=== PATIENT | male | born 1985 | race Caucasian/White ===

== ENCOUNTER 2024-10-17 18:19 | Emergency (ER) | payer MEDICAID ==
[~2024-10-17] VITALS: Ht 167.6 cm; Wt 54.0 kg
[2024-10-17 18:28] VITALS: TEMP 36.9; O2SAT 99
[2024-10-17] MEDS: CYCLOBENZAPRINE 10MG TABLET PO ONE (19:46)
[2024-10-17] MEDS: LIDOCAINE 5% PATCH TOP SCH (19:46)
[2024-10-17 19:52] VITALS: BP 124/79; PULSE 80; RESP 15; O2SAT 98
[2024-10-17] MEDS ORDERED: KETO10TA2 MT (20:53)
[2024-10-17] MEDS ORDERED: CYCL10TA21 MT (20:53)
[2024-10-17] MEDS ORDERED: LIDO-53 TP (20:53)
== END 2024-10-17 21:13 | disposition home or self-care (01) ==
LOC: ER 18:19
DX: M54.2 Cervicalgia (principal); R51.9 Headache, unspecified; V00.148A Other scooter (nonmotorized) accident, initial encounter; Y93.89 Activity, other specified; Y92.89 Other specified places as the place of occurrence of the external cause; Y99.8 Other external cause status
CPT/HCPCS: 99283